=== PATIENT | male | born 1990 | race Caucasian/White ===

== ENCOUNTER 2017-01-02 18:43 | Observation (INO) | payer OTHER ==
--- NOTE | ~2017-01-02 | CT71 ---
[facility] A Service [facility] RADIOLOGY TEXT RESULTS PATIENT: NICCI KNAPP LOCATION: [facility] : 90 UNIT #: [id number] AGE: [address]: Emir Jauregui MD SEX: M ORDER DR: [id number] [address] [place], [place] [address] [id number] MR#: [id number] Acc #: [id number] NAME: NICCI KNAPP. : 1990 SEX: M STUDY DATE/TIME: 01/02/2017 19:14 UNIT: A PCU ROOM: [address] [place] [address] DESCRIPTION: CT Head Wo Contrast Attending Physician: Emir Jauregui M.D. Ordering Physician: Gunnar Stover M.D. Primary Care Physician: Ashly Wilkins MEDICAL IMAGING REPORT This report is preliminary unless electronic signature is present EXAM CT brain without contrast. DATE OF EXAM 01/02/2017 HISTORY Headache for 2 days. Dizzy. Generalized weakness. TECHNIQUE NOTE: This CT exam was performed with one or more of the following radiation dose reduction techniques: automatic exposure control, adjustment of mA and/or kV according to patient size, and iterative reconstruction. FINDINGS CT brain without contrast demonstrates extensive paranasal sinus mucosal thickening, greater in the inferior maxillary sinuses and in the left sphenoid sinus. There is also opacification of multiple left mastoid air cells. No intracranial hemorrhage, mass or edema. No midline shift or ventricular dilatation or extraaxial fluid collection. IMPRESSION 1. Negative CT brain. 2. Moderately extensive paranasal sinusitis with mucosal thickening most advanced in the inferior maxillary sinuses and in the left sphenoid sinus. There is also opacification of multiple left mastoid air cells. Dictated by... [facility] A [facility] RADIOLOGY TEXT RESULTS PATIENT: NICCI KNAPP LOCATION: [facility] : 90 UNIT #: [id number] AGE: [address]: Emir Jauregui MD SEX: M ORDER DR: Facundo Mendoza M.D. THIS IS AN ELECTRONICALLY VERIFIED REPORT Facundo Mendoza M.D. at 01/04/2017 3:04 PM ALLEN/nara TD: 01/02/2017 22:21 JOB #: [id number] MEDICAL IMAGING REPORT COPY
--- NOTE | ~2017-01-02 | DS ---
Unit #: [id number] #: [id number] Patient: NICCI KNAPP [id number] [address] [place], [place] [address] [id number] I MR#: [id number] NAME: NICCI KNAPP. ROOM: 331 Age: 26 Sex: M Admission Date: 01/02/2017 : 1990 Discharge Date: 01/03/2017 Attending Physician: Emir Jauregui M.D. Primary Care Physician: Ashly Wilkins DISCHARGE SUMMARY PRIMARY CARE PHYSICIAN None. PRINCIPAL DIAGNOSES 1. Hyponatremia, secondary to psychogenic polydipsia. 2. Sepsis, secondary to pansinusitis. 3. Hypothyroidism, controlled. 4. Bipolar disorder with associated anxiety. 5. Mild rhabdomyolysis. 6. Obesity. MUSICAL PERFORMER None. PROCEDURES 1. Chest x-ray on January 02, 2017, which is negative. 2. CT angiogram of the chest on January 02, 2017, which is negative. CLINICAL HISTORY AND HOSPITAL COURSE Mr. Knapp is a 26-year-old male, who presents to the emergency department with nausea, vomiting, and cramping of the muscles. Please refer to H and P for further details. In the emergency department, the patient was found to have a sodium level of 123 in addition to an elevated white blood cell count of 25,000. He was subsequently placed in observation. The patient was placed on IV fluids and today sodium has normalized to 140. His nausea, vomiting, dizziness, and muscle cramping have all resolved. Discussion with his grandmother indicates patient has been drinking excessive amounts of water, up to 20 16-ounce bottles of water at home daily and I suspect his hyponatremia was secondary to a psychogenic polydipsia and subsequently all his symptoms were secondary to his hyponatremia. I did discuss with patient limiting his fluid intake daily in addition to using another means of treating his dry mouth rather than drinking. In regard to patient's significant leukocytosis, he was found to have pansinusitis on CT scan of the head. He has remained afebrile throughout hospitalization and white blood cell count is decreased from 25,000 down to 15,000. I am going to treat with oral Levaquin and I think he could be discharged home. Of note, I will note patient has a history of hypothyroidism but he has not been seen by a physician. He informs me that his grandmother has been Unit #: [id number] #: [id number] Patient: INCCI KNAPP giving him some of her thyroid medication given she takes the same dose and TSH is stable. I have written him a two-month prescription of levothyroxine. DISCHARGE CONDITION Stable. DISCHARGE STATUS Discharge to home. DISCHARGE MEDICATIONS 1. Levaquin solution 25 mg/mL at 20 mL p.o. daily for nine days. 2. Levothyroxine 100 mcg p.o. daily with two-month prescription given. DISCHARGE INSTRUCTIONS 1. The patient was instructed to follow a low-calorie diet. 2. He is to refrain from any significant water and/or fluid intake. 3. He can increase his activity as tolerated. FOLLOWUP The patient will follow up with his PCP with whom he is being arranged in one month. He needs a followup TSH in approximately that time as well. Dictated by... Susie Love M.D. MERYL/hank TD: 01/04/2017 10:55 JOB #: [id number] DISCHARGE SUMMARY X Susie Love MD DISCHARGE SUMMARY
--- NOTE | ~2017-01-02 | CT16 ---
[facility] A Service [facility] RADIOLOGY TEXT RESULTS PATIENT: NICCI KNAPP LOCATION: [facility] : 90 UNIT #: [id number] AGE: [address]: Emir Jauregui MD SEX: M ORDER DR: [id number] [facility] [address]. [place], [place] [address] [id number] I MR#: [id number] Acc #: [id number] NAME: NICCI KNAPP. : 1990 SEX: M STUDY DATE/TIME: 01/02/2017 20:47 UNIT: A PCU ROOM: [facility] STUDY DESCRIPTION: CT Angio Chest for PE Attending Physician: Emir Jauregui M.D. Ordering Physician: Gunnar Stover M.D. Primary Care Physician: Ashly Wilkins MEDICAL IMAGING REPORT This report is preliminary unless electronic signature is present EXAM CTA chest PE protocol INDICATIONS Generalized weakness, chills, nausea and cough for the past 3-4 days. PROCEDURE Contrast-enhanced CTA of the chest with attention on opacification of the pulmonary arteries. 80 mL of Isovue-370. COMPARISON STUDIES None. TECHNIQUE This CT exam was performed with one or more of the following radiation dose reduction techniques: automatic exposure control, adjustment of mA and/or kV according to patient size, and iterative reconstruction. FINDINGS No evidence for pulmonary embolus or acute aortic injury. No adenopathy. No acute findings in the included upper abdomen. No aggressive appearing bone lesion. Lungs are clear. IMPRESSION No acute findings in the chest. No evidence of pulmonary embolus Dictated by... Cale Molina M.D. THIS IS AN ELECTRONICALLY VERIFIED REPORT Cale Molina M.D. at 01/04/2017 7:00 AM DESTINEY/yvan [facility] A [facility] RADIOLOGY TEXT RESULTS PATIENT: NICCI KNAPP LOCATION: [facility] : 90 UNIT #: [id number] AGE: [address]: Emir Jauregui MD SEX: M ORDER DR: TD: 01/02/2017 23:39 JOB #: [id number] MEDICAL IMAGING REPORT COPY
--- NOTE | ~2017-01-02 | EKG ---
PATIENT: NICCI KNAPP UNIT #: [id number] Ventricular Rate: 55 BPM Atrial Rate: 55 BPM P-R Interval: 154 ms QRS Duration: 96 ms Q-T Interval: 460 ms QTC Calculation(Bezet): 440 ms P Exira: 37 degrees Calculated R Exira: 20 degrees Calculated T Exira: 5 degrees Diagnosis Line: Sinus bradycardia Diagnosis Line: Otherwise normal ECG Diagnosis Line: No previous ECGs available Diagnosis Line: Confirmed by MAYA CHAVEZ MD ([id number]) on Diagnosis Line: 01/03/2017 10:46:46 PM INTERPRETING MD: ASHWIN
--- NOTE | ~2017-01-02 | HP ---
Unit #: [id number] #: [id number] Patient: NICCI KNAPP [id number] [address] [place], [place] [address] [id number] I MR#: [id number] NAME: NICCI KNAPP. ROOM: 331 Age: 26 Sex: M Admission Date: 01/02/2017 : 1990 Attending Physician: Emir Jauregui M.D. Primary Care Physician: Ashly Wilkins HISTORY AND PHYSICAL CHIEF COMPLAINT Nausea and vomiting, cramps in extremities. HISTORY OF PRESENT ILLNESS This is a 26-year-old gentleman who has a past medical history of bipolar disorder, hypothyroidism, currently not taking any medications. He presented to the emergency room with chief complaint of nausea, vomiting, which he said was about two days ago which has been resolved. He is telling me that he does not feel better, he feels one minute hot and one minute cold, and having some cramps in the upper extremities, lower extremities, and he decided to come to the emergency room and in the emergency room on workup he was found to be white count 25,000, sodium 123, CT scan of the head shows extensive paranasal sinusitis, abnormal D-dimer. CT chest, PE protocol, is pending at the time of dictation. The patient eventually being admitted for further workup and evaluation for hyponatremia and leukocytosis. He denied chest pain. He said that he has nausea and vomiting two days ago which has been resolved, and denies fever, chills, cough, or other complaints. PAST MEDICAL HISTORY 1. History of bipolar. 2. Hypothyroidism. PAST SURGICAL HISTORY He denies any surgical interventions. SOCIAL HISTORY He denies any smoking. He denies alcohol. He denies illicit drug use. ALLERGIES No known drug allergies. HOME MEDICATIONS No medications at this time. REVIEW OF SYSTEMS CONSTITUTIONAL: No fever. No chills. CARDIOVASCULAR: No chest pain. No diaphoresis. No palpitations. PULMONARY: No cough. No wheezing. GI: Nausea and vomiting has been resolved. GENITOURINARY: No dysuria. No urgency and no frequency. NEUROLOGIC: No loss of consciousness. Unit #: [id number] #: [id number] Patient: NICCI KNAPP PHYSICAL EXAMINATION GENERAL: Young man lying in the bed comfortably, currently not in any distress. He is alert, awake, and oriented x3, comfortable, not in any distress. VITAL SIGNS: Current vitals are the following, temperature 98.5, heart rate 67, respiratory rate 17, and blood pressure 128/69. HEENT EXAMINATION: Pupils equal reactive to light and accommodation. Head: Normocephalic and atraumatic. NECK: Supple. No jugular venous distention. HEART: S1 and S2, regular rate and rhythm. ABDOMEN: Soft, nontender, and nondistended. Bowel sounds are positive. EXTREMITIES: Inspection normal. No cyanosis, no clubbing, and no edema. NEUROLOGIC: No focal neurologic deficit. DIAGNOSTIC STUDIES LABORATORY: Laboratory workup is the following, troponin less than 0.05, D-dimer is 622, white count is 25,000, hemoglobin is 14, hematocrit 42, and platelets 410. Lactic acid level is 1, CK total is 872, sodium 123, potassium 3.8, chloride 93, CO2 25, glucose 104, BUN 8, creatinine 0.8, LFT within normal limits. Lipase 24, albumin 3.2. Urine toxicology is negative. Urinalysis is unremarkable. Flu is negative. Glucose 124. IMAGING: Chest x-ray negative. CT head negative but shows extensive paranasal sinusitis. ASSESSMENT/PLAN 1. Hyponatremia could be secondary to psychogenic polydipsia with history of hypothyroidism and placed on normal saline and recheck TSH. 2. Extensive paranasal sinusitis, start on IV Levaquin. 3. Leukocytosis. 4. Increased CK, recheck in the morning and give some IV fluids. 5. Abnormal D-dimer will schedule CT chest PE protocol and venous Doppler of the bilateral lower extremities. 6. History of bipolar disorder, currently on medication. 7. Hypothyroidism, recheck TSH currently not taking any medication. 8. DVT prophylaxis, place on SCDs. Dictated by Oralia Yen/tyler TD: 01/03/2017 11:43 JOB #: [id number] Unit #: [id number] #: [id number] Patient: NICCI KNAPP HISTORY AND PHYSICAL X X HISTORY AND PHYSICAL
--- NOTE | ~2017-01-02 | US84 ---
[id number] [facility] [address] [place], [place] [address] [id number] I MR#: [id number] Acc #: [id number] NAME: NICCI KNAPP : 1990 SEX: M STUDY DATE/TIME: 01/03/2017 10:56 UNIT: C3A PCU ROOM: 331 STUDY DESCRIPTION: US LE Veins Complete Braeden Stdy Attending Physician: Emir Jauregui M.D. Ordering Physician: Mary Pabon M.D. MEDICAL IMAGING REPORT This report is preliminary unless electronic signature is present EXAM Venous Doppler ultrasound, both legs, 01/03/2017. HISTORY 26-year-old male with 3-day history of shortness of air. Elevated D-dimer. PE protocol chest CT yesterday was negative. TECHNIQUE Venous ultrasound examination of both lower extremities was performed using grayscale, spectral Doppler and color flow Doppler imaging. FINDINGS The examination is negative. There is no evidence of deep venous thrombus from the groin to the lower calf bilaterally. Visualized greater saphenous veins are also patent. IMPRESSION Negative examination. No evidence of lower extremity deep venous thrombosis. Dictated by... Shorty Green M.D. THIS IS AN ELECTRONICALLY VERIFIED REPORT Shorty Green M.D. at 01/04/2017 8:40 AM JIMY/j[place] TD: 01/03/2017 19:06 JOB #: [id number] MEDICAL IMAGING REPORT COPY
--- NOTE | ~2017-01-02 | CR63 ---
[facility] A Service of [facility] RADIOLOGY TEXT RESULTS PATIENT: NICCI KNAPP LOCATION: [place] [address] : [birth year] UNIT #: [id number] AGE: [address]: Emir Jauregui MD SEX: M ORDER DR: [id number] [facility] [address]. [place], [place] [address] [id number] E MR#: [id number] Acc #: [id number] NAME: NICCI KNAPP. : 1990 SEX: M STUDY DATE/TIME: 01/02/2017 18:03 UNIT: [facility] ROOM: STUDY DESCRIPTION: CR Chest 2 View Attending Physician: Gunnar Stover M.D. Ordering Physician: Gunnar Stover M.D. Primary Care Physician: Ashly Wilkins MEDICAL IMAGING REPORT This report is preliminary unless electronic signature is present EXAM PA and lateral chest. DATE OF EXAM 01/02/2017 HISTORY Cough and hand numbness and dizzy for 2 days. FINDINGS 2 views of the chest demonstrate low lung volumes. The cardiac size and pulmonary vascularity are within normal limits. No infiltrates or effusions. Moderate lower thoracic kyphosis. IMPRESSION No acute findings. Dictated by... Facundo Mendoza M.D. THIS IS AN ELECTRONICALLY VERIFIED REPORT Facundo Mendoza M.D. at 01/02/2017 11:18 PM ALLEN/nara TD: 01/02/2017 21:14 JOB #: [id number] MEDICAL IMAGING REPORT COPY
[2017-01-02 16:53] LABS: INFLUENZA A NEG (NEG); INFLUENZA B NEG (NEG)
[2017-01-02 17:21] LABS: URINE SOURCE CLEAN CATCH
[2017-01-02 17:29] LABS: URINE APPEARANCE CLEAR; URINE BILIRUBIN NEG (NEG); URINE BLOOD 2+ (NEG); URINE COLOR YELLOW; URINE GLUCOSE NEG (NEG); URINE KETONE NEG (NEG); URINE LEUKOCYTE ESTERASE NEG (NEG); URINE NITRATE NEG (NEG); URINE PROTEIN NEG (NEG); URINE SPECIFIC GRAVITY 1.004 (1.003-1.035); URINE UROBILINOGEN 0.2 MG/DL (NEG)
[2017-01-02 17:40] LABS: URBCS1 AUWI 0-2 /[HPF] (0-2)
[2017-01-02 17:41] LABS: CULTURE INDICATED? NO
[2017-01-02 17:52] LABS: BASOPHIL# 0.2 X10e3 (0-0.3); BASOPHIL% 0.8 % (0-2.5); EOSINOPHIL% 0.1 % (0.0-7.0); HEMATOCRIT 42.6 % (38.0-50.0); HEMOGLOBIN 14.5 gm/dL (13.0-16.0); LYMPHOCYTE# 2.6 X10e3 (1.0-3.5); LYMPHOCYTE% 10.1 % (17.0-45.0); MEAN CELL VOLUME 80.9 FL (83-96); MEAN CORPUSCULAR HEMOGLOBIN 27.6 PG (28-34); MEAN CORPUSCULAR HGB CONC 34.1 g/dL (30-36); MEAN PLATELET VOLUME 7.8 FL (6.5-11.5); MONOCYTE# 1.3 X10e3 (0-1.0); MONOCYTE% 5.2 % (3.0-12.0); NEUTROPHIL# 21.1 X10e3 (1.5-7.1); NEUTROPHIL% 83.8 % (40-75); PLATELET COUNT 410 X10e3 (140-420); RED BLOOD COUNT 5.27 X10e (3.90-5.60); RED CELL DISTRIBUTION WIDTH 13.1 % (11.0-15.5); WHITE BLOOD COUNT 25.2 X10e3 (4.0-10.5)
[2017-01-02 18:02] LABS: DIFF IND YES
[2017-01-02 18:09] LABS: AMPHETAMINE NEG (NEG); BARBITURATES NEG (NEG); BENZODIAZEPINES NEG (NEG); COCAINE NEG (NEG); MARIJUANA NEG (NEG); OPIATES NEG (NEG); TRICYCLIC ANTIDEPRESSANTS NEG (NEG); U METHADONE NEG (NEG)
[2017-01-02 18:11] LABS: ALBUMIN SERUM 3.2 g/dL (3.5-5.0); ALKALINE PHOSPHATASE 59 U/L (32-92); ALT (SGPT) 36 U/L (10-40); AST (SGOT) 41 U/L (10-42); BILIRUBIN, DIRECT 0.2 mg/dL (0.0-0.2); BILIRUBIN,INDIRECT 0.7 mg/dL (0.0-0.9); BILIRUBIN,TOTAL 0.9 mg/dL (0.2-2.0); BLOOD UREA NITROGEN 8 mg/dL (9-23); CALCIUM SERUM 9.5 mg/dL (8.4-10.2); CARBON DIOXIDE 25 mmol/L (22-31); CHLORIDE 93 mmol/L (100-111); CREATININE SERUM 0.8 mg/dL (0.6-1.4); GLOM FILT RATE Estimated ABOVE60 mL/min (>60); GLUCOSE FASTING 104 mg/dL (70-110); LIPASE 24 U/L (22-51); POTASSIUM 3.8 mmol/L (3.5-5.1); PROTEIN TOTAL SERUM 7.5 g/dL (6.0-8.3)
[2017-01-02 18:13] LABS: SODIUM 123 mmol/L (135-145)
[~2017-01-02 18:43] MED LIST: CORTISPORIN-TC10 ML AD; SYNTHROID75 MCG; SYNTHROID75 MCG PO
[2017-01-02 19:09] LABS: ANISOCYTOSIS SL; PLATELET ESTIMATE NORMAL (NORMAL)
[2017-01-02] MEDS ORDERED: NO MEDICATIONS (19:30)
[2017-01-02 19:36] LABS: POC - CKMB 7.7 ng/mL (0.0-7.9); POC - TROPONIN <0.05 ng/mL (<=0.05)
[2017-01-02 21:21] LABS: POC - CKMB 6.6 ng/mL (0.0-7.9); POC - TROPONIN <0.05 ng/mL (<=0.05)
[2017-01-03 05:47] LABS: BASOPHIL# 0.1 X10e3 (0-0.3); BASOPHIL% 0.7 % (0-2.5); DIFF IND NO; EOSINOPHIL# 0.1 X10e3 (0-0.7); EOSINOPHIL% 0.4 % (0.0-7.0); HEMATOCRIT 40.9 % (38.0-50.0); HEMOGLOBIN 13.6 gm/dL (13.0-16.0); LYMPHOCYTE# 3.8 X10e3 (1.0-3.5); LYMPHOCYTE% 25.2 % (17.0-45.0); MEAN CELL VOLUME 82.8 FL (83-96); MEAN CORPUSCULAR HEMOGLOBIN 27.6 PG (28-34); MEAN CORPUSCULAR HGB CONC 33.4 g/dL (30-36); MEAN PLATELET VOLUME 8.2 FL (6.5-11.5); MONOCYTE# 1.3 X10e3 (0-1.0); MONOCYTE% 8.2 % (3.0-12.0); NEUTROPHIL% 65.5 % (40-75); PLATELET COUNT 362 X10e3 (140-420); RED BLOOD COUNT 4.93 X10e (3.90-5.60); RED CELL DISTRIBUTION WIDTH 13.5 % (11.0-15.5); WHITE BLOOD COUNT 15.2 X10e3 (4.0-10.5)
[2017-01-03 06:29] LABS: BLOOD UREA NITROGEN 8 mg/dL (9-23); CALCIUM SERUM 9.4 mg/dL (8.4-10.2); CARBON DIOXIDE 28 mmol/L (22-31); CHLORIDE 102 mmol/L (100-111); CPK (CREATINE PHOSPHOKINASE) 335 IU/L (36-174); GLOM FILT RATE Estimated ABOVE60 mL/min (>60); GLUCOSE FASTING 86 mg/dL (70-110); POTASSIUM 4.1 mmol/L (3.5-5.1)
[2017-01-03 06:30] LABS: SODIUM 140 mmol/L (135-145)
[2017-01-03] MEDS ORDERED: LEVOTHYROXINE100 MCG PO (15:03)
[2017-01-03] MEDS ORDERED: LEVAQUIN I750 MG/151 IV (15:05)
== END 2017-01-03 15:50 | disposition home or self-care (01) ==
LOC: CED 18:43 → CEDOF 20:00 → C3A PCU 23:16
PROVIDERS: Emergency Medicine; Internal Medicine
DX: E87.1 Hypo-osmolality and hyponatremia (principal); R63.1 Polydipsia; J32.4 Chronic pansinusitis; A41.9 Sepsis, unspecified organism; E03.9 Hypothyroidism, unspecified; F31.9 Bipolar disorder, unspecified; M62.82 Rhabdomyolysis; R74.8 Abnormal levels of other serum enzymes; D72.829 Elevated white blood cell count, unspecified; E66.9 Obesity, unspecified
CPT/HCPCS: 36415; 70450; 71020; 71275; 80048; 80076; 80307; 81003; 82550; 82553; 82947; 83605; 83690; 84443; 84484; 85025; 85379; 87804; 93005; 93970; 96360; 96361; 96374; 99284; C9113; G0378; J1956; Q9967

== ENCOUNTER 2017-01-07 04:31 | Emergency (ER) | payer OTHER ==
--- NOTE | ~2017-01-07 | CR72 ---
[facility] A Service of [facility] RADIOLOGY TEXT RESULTS PATIENT: NICCI KNAPP JR LOCATION: [facility] : 90 UNIT #: [id number] AGE: [address]: Jesse Berkowitz MD SEX: M ORDER DR: [id number] [facility] [address] [place], [place] [address] [id number] E MR#: [id number] Acc #: [id number] NAME: NICCI KNAPP. : 1990 SEX: M STUDY DATE/TIME: 01/07/2017 4:45 UNIT: [facility] ROOM: STUDY DESCRIPTION: CR Chest Single View Portable Attending Physician: Jesse Berkowitz M.D. Ordering Physician: Jesse Berkowitz M.D. Primary Care Physician: Ashly Wilkins MEDICAL IMAGING REPORT This report is preliminary unless electronic signature is present EXAM Portable AP view of the chest. COMPARISON January 02, 2017. INDICATIONS 26-year-old male with cough, dyspnea, nausea, dizziness for 3 weeks. FINDINGS There are low lung volumes. No evidence of pneumothorax or pleural effusion. There is apparent increased density over the right pulmonary apex favored to be due to a combination of overlapping bony structures and normal bronchovascular structures. However, developing pneumonia cannot be excluded. Cardiomediastinal silhouette is normal. IMPRESSION Exam is limited by poor inspiratory effort and apical lordotic technique. Bony structures are overlapping in the right pulmonary apex and likely overlapping normal bronchovascular structures as well creating increased density. However, given these factors a developing right upper lobe pneumonia cannot entirely be excluded. Consider imaging with standard PA and lateral views with good inspiratory effort. No pleural effusion. Bones are otherwise clear. Dictated by... Alistair Acosta M.D. THIS IS AN ELECTRONICALLY VERIFIED REPORT Alistair Acosta M.D. at 01/12/2017 9:25 AM Tariq TD: 01/07/2017 06:32 [facility] A Service of [facility] RADIOLOGY TEXT RESULTS PATIENT: NICCI KNAPP JR LOCATION: [facility] #: [id number] : [birth year] UNIT #: [id number] AGE: [address]: Jesse Berkowitz MD SEX: M ORDER DR: JOB #: [id number] MEDICAL IMAGING REPORT COPY
--- NOTE | ~2017-01-07 | EKG ---
PATIENT: NICCI KNAPP UNIT #: [id number] Ventricular Rate: 66 BPM Atrial Rate: 66 BPM P-R Interval: 164 ms QRS Duration: 96 ms Q-T Interval: 376 ms QTC Calculation(Bezet): 394 ms P Phyllis: 26 degrees Calculated R Phyllis: 21 degrees Calculated T Phyllis: 18 degrees Diagnosis Line: Normal sinus rhythm Diagnosis Line: Normal ECG Diagnosis Line: No previous ECGs available Diagnosis Line: Confirmed by KATHERIN LYNN MD ([id number]) on 01/07/2017 Diagnosis Line: 6:24:52 PM INTERPRETING MD: SHANE HASSAN
[~2017-01-07 04:31] MED LIST changes: +LEVAQUIN I750 MG/151 IV; +LEVOTHYROXINE100 MCG PO; +NO MEDICATIONS
[2017-01-07 04:44] LABS: BASOPHIL# 0.1 X10e3 (0-0.3); BASOPHIL% 0.7 % (0-2.5); DIFF IND YES; EOSINOPHIL# 0.2 X10e3 (0-0.7); EOSINOPHIL% 1.2 % (0.0-7.0); HEMOGLOBIN 13.8 gm/dL (13.0-16.0); LYMPHOCYTE% 32.2 % (17.0-45.0); MEAN CELL VOLUME 84.3 FL (83-96); MEAN CORPUSCULAR HEMOGLOBIN 27.7 PG (28-34); MEAN CORPUSCULAR HGB CONC 32.9 g/dL (30-36); MONOCYTE# 1.2 X10e3 (0-1.0); MONOCYTE% 6.5 % (3.0-12.0); NEUTROPHIL# 11.1 X10e3 (1.5-7.1); NEUTROPHIL% 59.4 % (40-75); PLATELET COUNT 368 X10e3 (140-420); RED BLOOD COUNT 4.98 X10e (3.90-5.60); RED CELL DISTRIBUTION WIDTH 13.8 % (11.0-15.5); WHITE BLOOD COUNT 18.7 X10e3 (4.0-10.5)
[2017-01-07 04:58] LABS: PLATELET ESTIMATE NORMAL (NORMAL)
[2017-01-07 05:01] LABS: POIKILOCYTOSIS SL; SMUDGE CELLS 9 /100; SPHEROCYTE SL; TEAR DROP CELLS PRESENT
[2017-01-07 05:25] LABS: ALBUMIN SERUM 3.1 g/dL (3.5-5.0); ALKALINE PHOSPHATASE 41 U/L (32-92); ALT (SGPT) 31 U/L (10-40); AMYLASE 36 U/L (0-46); AST (SGOT) 22 U/L (10-42); BILIRUBIN, DIRECT 0.1 mg/dL (0.0-0.2); BILIRUBIN,INDIRECT 0.4 mg/dL (0.0-0.9); BILIRUBIN,TOTAL 0.5 mg/dL (0.2-2.0); BLOOD UREA NITROGEN 15 mg/dL (9-23); BUN/CREATININE RATIO 16.66; CARBON DIOXIDE 26 mmol/L (22-31); CHLORIDE 105 mmol/L (100-111); CREATININE SERUM 0.9 mg/dL (0.6-1.4); GLOM FILT RATE Estimated ABOVE60 mL/min (>60); GLUCOSE FASTING 94 mg/dL (70-110); LIPASE 35 U/L (22-51); POTASSIUM 3.9 mmol/L (3.5-5.1); PROTEIN TOTAL SERUM 6.4 g/dL (6.0-8.3); SODIUM 136 mmol/L (135-145)
[2017-01-07 06:27] LABS: INFLUENZA A NEG (NEG); INFLUENZA B NEG (NEG)
== END 2017-01-07 06:28 | disposition home or self-care (01) ==
LOC: CED 04:31
PROVIDERS: Emergency Medicine
DX: R10.13 Epigastric pain (principal); R56.9 Unspecified convulsions
CPT/HCPCS: 36415; 71010; 80048; 80076; 82150; 83690; 85025; 87804; 93005; 96374; 99284; J2405

== ENCOUNTER 2017-01-08 04:58 | Emergency (ER) | payer OTHER ==
--- NOTE | ~2017-01-08 | CT71 ---
[facility] A Service [facility] RADIOLOGY TEXT RESULTS PATIENT: NICCI KNAPP JR LOCATION: [facility] : 90 UNIT #: [id number] AGE: [address]: Tushar Whitmore MD SEX: M ORDER DR: [id number] [place] [id number] E MR#: [id number] Acc #: [id number] NAME: NICCI KNAPP JR : 1990 SEX: M STUDY DATE/TIME: 01/08/2017 6:31 UNIT: SED ROOM: STUDY DESCRIPTION: CT Head Wo Contrast Attending Physician: Tushar Whitmore M.D. Ordering Physician: Andrey Cross M.D. Primary Care Physician: Ashly Wilkins MEDICAL IMAGING REPORT This report is preliminary unless electronic signature is present. EXAM Head CT without contrast HISTORY Shortness of breath, headache and dizziness for the past 3 weeks. COMPARISON 01/02/2017. TECHNIQUE Axial images were obtained without contrast. This CT examination was performed with one or more of the following radiation dose reduction techniques: automatic exposure control, adjustment of mA and/or kV according to patient size, and iterative reconstruction. FINDINGS Brain images are normal with no evidence of mass, hemorrhage or edema. No midline shift is seen. Extraaxial structures are remarkable for mucosal thickening in the maxillary and sphenoid sinuses. This has improved since the previous scan. IMPRESSION Chronic inflammatory sinus disease showing improvement since the previous scan. The brain images are normal. Dictated by... Nikita Rutledge M.D. THIS IS AN ELECTRONICALLY VERIFIED REPORT Nikita Rutledge M.D. at 01/08/2017 3:26 PM RLF/mjs [facility] A [facility] RADIOLOGY TEXT RESULTS PATIENT: NICCI KNAPP JR LOCATION: [facility] : 90 UNIT #: [id number] AGE: [address]: Tushar Whitmore MD SEX: M ORDER DR: TD: 01/08/2017 09:53 JOB #: [id number] MEDICAL IMAGING REPORT
--- NOTE | ~2017-01-08 | CR63 ---
[facility] A Service [facility] RADIOLOGY TEXT RESULTS PATIENT: NICCI KNAPP JR LOCATION: [facility] : 90 UNIT #: [id number] AGE: [address]: Tushar Whitmore MD SEX: M ORDER DR: [id number] [place] [id number] E MR#: [id number] Acc #: [id number] NAME: NICCI KNAPP JR : 1990 SEX: M STUDY DATE/TIME: 01/08/2017 6:16 UNIT: SED ROOM: STUDY DESCRIPTION: CR Chest 2 View Attending Physician: Tushar Whitmore M.D. Ordering Physician: Andrey Cross M.D. Primary Care Physician: Ashly Wilkins MEDICAL IMAGING REPORT This report is preliminary unless electronic signature is present. EXAM Chest x-ray. HISTORY Shortness of breath, cough, congestion, sinus pain and dizziness for the past 3 weeks. TECHNIQUE 2 views of the chest were obtained and compared with 01/07/2017. FINDINGS There is an exaggerated lower thoracic kyphosis with wedge deformities of the lower thoracic vertebra. The lungs are clear. The heart and mediastinum have a normal configuration and the vascular pattern is normal. IMPRESSION Both lungs are fully expanded and clear. There is exaggerated thoracic kyphosis. Dictated by... Nikita Rutledge M.D. THIS IS AN ELECTRONICALLY VERIFIED REPORT Nikita Rutledge M.D. at 01/08/2017 3:26 PM RLF/douglasw TD: 01/08/2017 09:54 JOB #: [id number] [facility] A [facility] RADIOLOGY TEXT RESULTS PATIENT: NICCI KNAPP JR LOCATION: [facility] : 90 UNIT #: [id number] AGE: [address]: Tushar Whitmore MD SEX: M ORDER DR: MEDICAL IMAGING REPORT
--- NOTE | ~2017-01-08 | EKG ---
PATIENT: NICCI KNAPP UNIT #: [id number] Ventricular Rate: 77 BPM Atrial Rate: 77 BPM P-R Interval: 150 ms QRS Duration: 84 ms Q-T Interval: 360 ms QTC Calculation(Bezet): 407 ms P Henderson: 26 degrees Calculated R Henderson: 14 degrees Calculated T Henderson: 19 degrees Diagnosis Line: Normal sinus rhythm Diagnosis Line: Non Diagnostic Q in Lead Lateral leads Early Diagnosis Line: repolarization Otherwise normal ECG Diagnosis Line: When compared with ECG of 07-JAN-2017 04:19, Diagnosis Line: No significant change was found Diagnosis Line: Confirmed by KATHERIN LYNN MD ([id number]) on 01/08/2017 Diagnosis Line: 4:43:40 PM INTERPRETING MD: SHANE HASSAN
[2017-01-08 06:12] LABS: BASOPHIL# 0.1 X10e3 (0-0.3); BASOPHIL% 0.6 % (0-2.5); EOSINOPHIL# 0.1 X10e3 (0-0.7); EOSINOPHIL% 0.5 % (0.0-7.0); HEMATOCRIT 44.1 % (38.0-50.0); HEMOGLOBIN 14.6 gm/dL (13.0-16.0); LYMPHOCYTE# 3.1 X10e3 (1.0-3.5); MEAN CELL VOLUME 84.7 FL (83-96); MEAN CORPUSCULAR HEMOGLOBIN 27.9 PG (28-34); MEAN PLATELET VOLUME 7.8 FL (6.5-11.5); MONOCYTE# 1.1 X10e3 (0-1.0); MONOCYTE% 5.7 % (3.0-12.0); NEUTROPHIL% 77.2 % (40-75); PLATELET COUNT 410 X10e3 (140-420); RED BLOOD COUNT 5.21 X10e (3.90-5.60); RED CELL DISTRIBUTION WIDTH 13.9 % (11.0-15.5); WHITE BLOOD COUNT 19.5 X10e3 (4.0-10.5)
[2017-01-08 06:13] LABS: DIFF IND NO
[2017-01-08 06:21] LABS: URINE SOURCE CLEAN CATCH
[2017-01-08 06:24] LABS: URINE APPEARANCE CLEAR; URINE BILIRUBIN NEG (NEG); URINE BLOOD 3+ (NEG); URINE COLOR YELLOW; URINE GLUCOSE NEG (NORM); URINE KETONE NEG (NEG); URINE LEUKOCYTE ESTERASE NEG (NEG); URINE NITRATE NEG (NEG); URINE PH 7.5 (5-8); URINE PROTEIN NEG (NEG); URINE UROBILINOGEN 0.2 MG/DL (NORM)
[2017-01-08 06:25] LABS: MICRO INDICATED? YES
[2017-01-08 06:27] LABS: BLOOD UREA NITROGEN 15 mg/dL (9-23); BUN/CREATININE RATIO 13.63; CALCIUM SERUM 9.2 mg/dL (8.4-10.2); CARBON DIOXIDE 29 mmol/L (22-31); CHLORIDE 100 mmol/L (100-111); CREATININE SERUM 1.1 mg/dL (0.6-1.4); GLOM FILT RATE Estimated ABOVE60 mL/min (>60); GLUCOSE FASTING 120 mg/dL (70-110); POTASSIUM 4.2 mmol/L (3.5-5.1); SODIUM 137 mmol/L (135-145)
[2017-01-08 06:29] LABS: CULTURE INDICATED? YES; URINE BACTERIA 1+ (NEG); URINE SQUAMOUS EPITHELIAL CELL FEW /[HPF]; URINE WBC 0-2 /[HPF] (0-5)
[2017-01-08 06:29] LABS: POC - CKMB <1.0 ng/mL (0.0-7.9); POC - MYOGLOBIN 64.7 ng/mL (0.0-169.0); POC - TROPONIN <0.05 ng/mL (<=0.05)
[2017-01-08 06:36] LABS: AMPHETAMINE NEG (NEG); BARBITURATES NEG (NEG); BENZODIAZEPINES NEG (NEG); COCAINE NEG (NEG); MARIJUANA NEG (NEG); OPIATES NEG (NEG); TRICYCLIC ANTIDEPRESSANTS NEG (NEG); U METHADONE NEG (NEG)
== END 2017-01-08 08:10 | disposition home or self-care (01) ==
LOC: SED 04:58
PROVIDERS: Emergency Medicine
DX: J01.00 Acute maxillary sinusitis, unspecified (principal); J01.20 Acute ethmoidal sinusitis, unspecified; F41.9 Anxiety disorder, unspecified; J20.9 Acute bronchitis, unspecified; E03.9 Hypothyroidism, unspecified; F31.9 Bipolar disorder, unspecified; Z79.899 Other long term (current) drug therapy
CPT/HCPCS: 36415; 70450; 71020; 80048; 80307; 81003; 82550; 82553; 83874; 84443; 84484; 85025; 87086; 93005; 96360; 99284